=== PATIENT | female | born 1950 | race Caucasian/White ===

== ENCOUNTER 2019-04-15 10:51 | Inpatient (IN) | payer OTHER ==
[~2019-04-15] VITALS: Ht 154.9 cm; Wt 74.8 kg
[2019-04-15] MEDS ORDERED: LOSARTA PO (13:22)
[2019-04-15] MEDS ORDERED: METOPR PO (13:23)
[2019-04-15] MEDS ORDERED: ADULT ASPIRIN81 MG PO (13:24)
[2019-04-15] MEDS ORDERED: GABAPENTIN300 MG PO (13:24)
[2019-04-15] MEDS ORDERED: AMLODIPINE BESYL5 MG PO (13:24)
[2019-04-15] MEDS ORDERED: ATORVASTATIN CA40 MG PO (13:25)
[2019-04-15] MEDS ORDERED: GLIMEPIRIDE4 MG PO (13:25)
[2019-04-15] MEDS ORDERED: FORTAMET1000 MG PO (13:25)
[2019-04-17] MEDS ORDERED: LOSARTAN-HCTZ1 EAC2 PO (14:25)
[2019-04-17] MEDS ORDERED: METOPROLOL TART50 MG PO (14:26)
== END 2019-04-18 09:08 | disposition home or self-care (01) | DRG 349 ==
LOC: O/R 04-17 05:10 → SURH 04-17 07:00 → SURG 04-17 11:22 → SURH 04-17 11:45 → SURG 04-18 09:08
PROVIDERS: ADMIT Colon & Rectal Surgery
PROC: 0KXM0ZZ Transfer Perineum Muscle, Open Approach (ICD-10-PCS; 2019-04-17)
PROC: 0DBP7ZZ Excision of Rectum, Via Natural or Artificial Opening (ICD-10-PCS; principal; 2019-04-17 07:00)
DX: K92.1 Melena (principal); K63.89 Other specified diseases of intestine; K62.3 Rectal prolapse; R15.9 Full incontinence of feces; E11.9 Type 2 diabetes mellitus without complications; Z79.4 Long term (current) use of insulin